=== PATIENT | female | born 2000 | race Caucasian/White ===

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

== ENCOUNTER 2018-04-21 12:02 | Emergency (ER) | END 2018-04-21 13:30 | disposition home or self-care (01) ==

== ENCOUNTER 2019-03-23 00:06 | Emergency (ER) | payer BC ==
[~2019-03-23] VITALS: Ht 160 cm; Wt 74.8 kg
[~2019-03-23 00:06] MED LIST: FIORICET PO; IBUP-1542 PO; IBUP-1561 PO; ONDA4TAB14 PO
[2019-03-23 00:07] VITALS: Ht 160 cm; Wt 74.8 kg
[2019-03-23] MEDS ORDERED: ONDANSETRON 4 MG INJ IV STA (01:31)
[2019-03-23] MEDS ORDERED: morphine 2 MG INJ IV STA (01:31)
[2019-03-23] MEDS ORDERED: SOD CHLORIDE 0.9% 1,000 ML IV STA (01:31)
[2019-03-23 03:16] VITALS: BP 111/74; PULSE 63; RESP 18
== END 2019-03-23 03:16 | disposition home or self-care (01) ==
LOC: FTE 00:06
DX: R10.13 Epigastric pain (principal); J45.909 Unspecified asthma, uncomplicated
CPT/HCPCS: 36415; 76705; 80053; 81001; 81025; 83690; 84702; 85025; 96361; 96374; 96375; 99285; J2270; J2405; J7030